=== PATIENT | male | born 1955 | race Caucasian/White ===

== ENCOUNTER 2016-11-12 10:02 | Inpatient (IN) | payer MEDICAID ==
[~2016-11-12] VITALS: Ht 167.6 cm; Wt 81.6 kg
[2016-11-12 10:27] VITALS: BP 206/103; PULSE 84; RESP 16; TEMP 96.7; O2SAT 99
--- NOTE | 2016-11-12 10:43 | NUR ---
Patient to ER bed 4 for evaluation. Side rails up. Report given to Gi CASTRO. Patient refused gown.
--- NOTE | 2016-11-12 10:45 | NUR ---
ER Dr. Bonilla at bedside examining patient.
--- NOTE | 2016-11-12 10:48 | NUR ---
DR VO AT BEDSIDE FOR EVALUATION
--- NOTE | 2016-11-12 11:02 | NUR ---
WHEN ATTEMPTING TO PLACE [facility]. PT STATES HE IS REFUSING TO HAVE AN IV
[2016-11-12 11:13] LABS: CALCIUM 9.2 mg/dL (8.4-11.0)
[2016-11-12 11:17] LABS: BASOPHILS # (AUTO) 0.1 K/uL (0.0-0.2); BASOPHILS % (AUTO) 0.6 % (0.0-2.0); EOSINOPHILS # (AUTO) 0.5 K/uL (0.0-0.4); EOSINOPHILS % (AUTO) 4.8 % (0.0-4.0); HEMATOCRIT 29.6 % (36-54); HEMOGLOBIN 9.5 g/dL (14.0-18.0); LYMPHOCYTES # (AUTO) 1.7 K/uL (1.0-5.5); LYMPHOCYTES % (AUTO) 17.4 % (20.5-51.5); MEAN CORPUSCULAR HEMOGLOBIN 30 pg (27-31); MEAN CORPUSCULAR HGB CONC 32 % (32-36); MEAN CORPUSCULAR VOLUME 92 fL (79.0-98.0); MONOCYTES # (AUTO) 0.7 K/uL (0.0-1.0); MONOCYTES % (AUTO) 7.5 % (1.7-9.3); NEUTROPHILS # (AUTO) 6.9 K/uL (1.8-7.7); NEUTROPHILS % (AUTO) 69.7 % (40.0-70.0); PLATELET COUNT (AUTO) 235 K/uL (130-430); PROTHROMBIN TIME 11.1 SECS (9.5-12.5); RED BLOOD CELL COUNT(AUTO) 3.21 MIL/uL (4.2-6.2); RED CELL DISTRIBUTION WIDTH 14.6 % (9.0-15.0); WHITE BLOOD COUNT (AUTO) 9.9 K/uL (4.8-10.8)
[2016-11-12 11:18] LABS: ALBUMIN 3.4 g/dL (3.4-4.8); TOTAL BILIRUBIN 0.3 mg/dL (0.0-1.0); TOTAL PROTEIN, SERUM 7.6 g/dL (6.4-8.3)
[2016-11-12 11:26] LABS: CREATININE 11.14 mg/dL (0.55-1.30); POTASSIUM 7.4 mmol/L (3.5-5.1)
[2016-11-12] MEDS ORDERED: HYDROcodone/ACETAMIN 5-325 MG TAB (NORCO/ VICODIN) PO ONE (11:45)
[2016-11-12] MEDS ORDERED: INSULIN REGULAR, HUMAN 10 UNITS/0.1 ML INJ IVP ONE (11:45)
[2016-11-12] MEDS ORDERED: DEXTROSE 50% JECT 50 ML DISP.SYRIN IVP ONE (11:45)
[2016-11-12] MEDS ORDERED: ALPRAZolam 0.25 MG TABLET PO ONE (12:00)
[2016-11-12] MEDS ORDERED: cloNIDine HCL 0.1 MG TABLET PO ONE (12:00)
--- NOTE | 2016-11-12 12:33 | NUR ---
SPOKE WITH DR FERNÁNDEZ AND RECEIVED ORDERS
--- NOTE | 2016-11-12 12:53 | NUR ---
ADMISSION NOTE Received patient from ER via gricel, received report from Jaiden CASTRO. Patient admitted with diagnosis of Hyperkalemia . Patient oriented to hospital routine, call light, toileting and safety-patient verbalized understanding.
--- NOTE | 2016-11-12 13:00 | NUR ---
Patient will be admitted to care of Dr Stark. Admitted to Tele unit. Will go to room 116A. Belongings list completed. Summary report printed. Report will be given at bedside.
--- NOTE | 2016-11-12 15:31 | NUR ---
ROUNDS TO PATIENT. REQUEST FOR COFFEE. DIETITIAN SUGGESTS TEA FOR PATIENT. SAYS HE WANTS COFFEE. PROVIDED EDUCATION. SAYS HE WANTS COFFEE.
--- NOTE | 2016-11-12 16:29 | NUR ---
PROVIDER DOCTOR FERNÁNDEZ AND DOCTOR BOSS NOTIFIED TO OFFICE STAFF PATIENT LEAVING AMA AT THIS TIME.
--- NOTE | 2016-11-12 16:37 | NUR ---
PATIENT EDUCATION ABOUT SOUP NOT ON RENAL DIET. VERBALIZES HE WANTS SOUP ANYWAY. SOUP GIVEN REQUESTED.
[2016-11-12 16:38] VITALS: BP 182/82; PULSE 84; RESP 16; TEMP 97; O2SAT 96
[2016-11-12 16:47] VITALS: BP 145/77; PULSE 85; RESP 16; TEMP 97.4; O2SAT 94
--- NOTE | 2016-11-12 16:51 | NUR ---
PATIENT IV CATHETER TIP INTACT UPON REMOVAL. SITE OF RIGHT HAND WITHOUT SWELLING OR DRAINAGE. ID BAND REMOVED. PATIENT SAYS HIS RIDE WILL BE HERE IN 2 HOURS.
[2016-11-12] MEDS ORDERED: DEXTROSE 50% JECT 50 ML DISP.SYRIN IVP PRN (17:30)
[2016-11-12] MEDS ORDERED: INSULIN REGULAR, HUMAN 100 UNITS/ML, 10 ML VIAL (novoLIN R) SUBCUT PRN (17:30)
[2016-11-12] MEDS ORDERED: cloNIDine HCL 0.1 MG TABLET PO PRN (17:30)
[2016-11-12] MEDS ORDERED: ONDANSETRON HCL 4 MG/2 ML VIAL IVP PRN (17:30)
[2016-11-12] MEDS ORDERED: ACETAMINOPHEN 325 MG TABLET PO PRN (17:30)
--- NOTE | 2016-11-12 17:55 | NUR ---
DOCTOR GERA DAN. REQUESTS STAT POTASSIUM. LABORATORY CALLED AT THIS TIME.
--- NOTE | 2016-11-12 18:06 | NUR ---
Called for Nephro Consult: for Dr. Jorge, regarding RF, ordered by Dr. Stark.
--- NOTE | 2016-11-12 18:29 | NUR ---
PATIENT REFUSES STAT POTASSIUM DRAW PER RYANN SUPERVISOR PIPELINE MAINTENANCE IN LAB.
--- NOTE | 2016-11-12 18:40 | NUR ---
PROVIDER DOCTOR BOSS SAYS HE WILL NO LONGER CONSIDER DISCHARGE OF THE PATIENT. THE PATIENT MAY DEPART ONLY AGAINST MEDICAL ADVICE.
--- NOTE | 2016-11-12 18:59 | NUR ---
Provider Doctor Luisito aware patient to depart ama.
--- NOTE | 2016-11-12 19:13 | NUR ---
AMA: Patient does not wish to proceed with medical care recommended. Patient given information related to possible complications, up to and including , which could occur as a result of leaving hospital at this time. Patient verbalizes understanding of risks involved leaving against medical advice. Patient has signed AMA form.
== END 2016-11-12 19:13 | disposition left against medical advice (07) | DRG 460 ==
LOC: SED 10:02 → STU 12:26
PROVIDERS: ADMIT Internal Medicine; ATTEND Internal Medicine
PROC: 5A1D00Z (ICD-10-PCS; principal; 2016-11-12)
PROC: 02HV33Z Insertion of Infusion Device into Superior Vena Cava, Percutaneous Approach (ICD-10-PCS; 2016-11-12)
DX: I12.0 Hypertensive chronic kidney disease with stage 5 chronic kidney disease or end stage renal disease (principal); E11.22 Type 2 diabetes mellitus with diabetic chronic kidney disease; N18.6 End stage renal disease; E87.5 Hyperkalemia; D63.8 Anemia in other chronic diseases classified elsewhere; Z53.21 Procedure and treatment not carried out due to patient leaving prior to being seen by health care provider; Z99.2 Dependence on renal dialysis
CPT/HCPCS: 36415; 71010; 80053; 85025; 85610-TC; 85730-TC; 87081; 90935; 93005; J1815; J7030